=== PATIENT | female | born 1960 | race Caucasian/White ===

== ENCOUNTER 2019-01-20 11:22 | Emergency (ER) | payer BC ==
--- NOTE | 2019-01-20 14:12 | EDM.PDOC ---
ED HPI GENERAL MEDICAL PROBLEM - General Chief Complaint: Cardiovascular Problem Stated Complaint: HEART FLUTTERING Time Seen by Provider: 01/20/19 11:35 Source of Information: Reports: Patient History Limitations: Reports: No Limitations - History of Present Illness INITIAL COMMENTS - FREE TEXT/NARRATIVE: The patient presents with right upper chest pain that radiates to her back and fluttering in he chest. She was just at the [employer] in [place] and she developed this pain on the way home. She has a history of fibromyalgia and she thinks it could be that. She is not that concerned about that but she says it felt like her heart was fluttering in her chest at times. She has no fever, chills, cough, shortness of breath, abdominal pain, nausea or vomiting. She has no history of DVT or PE. She does have some right leg pain but that goes along with her fibromyalgia. She has no swelling. Onset: Gradual Duration: Day(s): Location: Reports: Chest, Back Quality: Reports: Sharp Severity: Moderate Improves with: Reports: Immobilization Worsens with: Reports: Movement Context: Denies: Trauma Associated Symptoms: Reports: Chest Pain. Denies: Cough, Fever/Chills, Headaches, Nausea/Vomiting, Shortness of Breath Right Upper Chest Pain Score (Numeric/FACES): 10 - Related Data Allergies Allergy/AdvReac Type Severity Reaction Status Date / Time No Known Allergies Allergy Verified 01/20/19 11:39 Home Meds: Home Meds Calcium Carbonate [Calcium] 1,500 mg PO DAILY 01/20/19 [History] Cyanocobalamin (Vitamin B12) [Vitamin B12] 2,000 mcg PO DAILY 01/20/19 [History] Ibuprofen 200 mg PO Q6HR 01/20/19 [History] L.acidoph,Paracasei, B.lactis [Probiotic] 1 each PO DAILY 01/20/19 [History] Magnesium 0 mg PO DAILY 01/20/19 [History] Past Medical History Cardiovascular History: Reports: None Respiratory History: Reports: None QUALITY NURSE History: Reports: None Musculoskeletal History: Reports: Other (See Below) Other Musculoskeletal History: Fibromyalgia. Osteopenia. Chronic Neck Pain. Neurological History: Reports: Headaches, Chronic, Migraines Psychiatric History: Reports: None Endocrine/Metabolic History: Reports: None Hematologic History: Reports: B12 Deficiency Immunologic History: Reports: None Oncologic (Cancer) History: Reports: None Dermatologic History: Reports: None - Infectious Disease History Infectious Disease History: Reports: None - Past Surgical History HEENT Surgical History: Reports: Naso-Sinus Surgery GI Surgical History: Reports: Colonoscopy Female Surgical History: Reports: Hysterectomy Social & Family History - Tobacco Use Smoking Status *Q: Never Smoker - Caffeine Use Caffeine Use: Reports: None - Recreational Drug Use Recreational Drug Use: No ED ROS GENERAL - Review of Systems Review Of Systems: See Below Constitutional: Reports: No Symptoms HEENT: Reports: No Symptoms Respiratory: Reports: No Symptoms Cardiovascular: Reports: Chest Pain Endocrine: Reports: No Symptoms GI/Abdominal: Reports: No Symptoms : Reports: No Symptoms Musculoskeletal: Reports: Back Pain (Right upper) Skin: Reports: No Symptoms Neurological: Reports: No Symptoms ED EXAM, GENERAL - Physical Exam Exam: See Below Exam Limited By: No Limitations General Appearance: Alert, No Apparent Distress Ears: Normal External Exam Nose: Normal Inspection Head: Atraumatic, Normocephalic Neck: Normal Inspection, Supple, Non-Tender Respiratory/Chest: No Respiratory Distress, Lungs Clear, Normal Breath Sounds Cardiovascular: Regular Rate, Rhythm, No Edema, No Murmur GI/Abdominal: Soft, Non-Tender, No Organomegaly, No Mass Back Exam: Other (Mild pain upon palpation to the right upper back) Extremities: Normal Inspection EKG INTERPRETATION EKG Date: 01/20/19 Time: 11:33 Rhythm: NSR Rate (Beats/Min): 76 [place]: Normal P-Wave: Present QRS: Normal ST-T: Normal QT: Normal Course - Vital Signs Last Recorded V/S: Last Vital Signs Temp 98.3 F 01/20/19 11:33 Pulse 95 01/20/19 11:33 Resp 16 01/20/19 11:33 BP 123/66 01/20/19 11:33 Pulse Ox 95 01/20/19 11:33 - Orders/Labs/Meds Orders: Active Orders 24 hr Category Date Time Status Cardiac Monitoring [RC] . DIRECTED Care 01/20/19 11:50 Active EKG 12 Lead [EKG Documentation Completion] [RC] ROUTINE Care 01/20/19 11:45 Active Holter Monitor 48 Hours [RC] .PRN Care 01/20/19 14:06 Ordered Chest 2V [CR] Stat Exams 01/20/19 11:51 Taken Labs: Laboratory Tests 01/20/19 01/20/19 01/20/19 Range/Units 12:07 12:07 12:07 WBC 5.45 (3.98-10.04) K/mm3 RBC 4.35 (3.98-5.22) M/mm3 Hgb 13.2 (11.2-15.7) gm/dl Hct 40.1 (34.1-44.9) % MCV 92.2 (79.4-94.8) fl MCH 30.3 (25.6-32.2) pg MCHC 32.9 (32.2-35.5) g/dl RDW Std Deviation 43.1 (36.4-46.3) fL Plt Count 352 (182-369) K/mm3 MPV 9.1 L (9.4-12.3) fl Neut % (Auto) 60.4 (34.0-71.1) % Lymph % (Auto) 21.5 (19.3-51.7) % [place] % (Auto) 9.9 (4.7-12.5) % Eos % (Auto) 7.3 H (0.7-5.8) Baso % (Auto) 0.9 (0.1-1.2) % Neut # (Auto) 3.29 (1.56-6.13) K/mm3 Lymph # (Auto) 1.17 L (1.18-3.74) K/mm3 [place] # (Auto) 0.54 H (0.24-0.36) K/mm3 Eos # (Auto) 0.40 H (0.04-0.36) K/mm3 Baso # (Auto) 0.05 (0.01-0.08) K/mm3 D-Dimer, Quantitative 0.48 (0.19-0.50) mg/L Sodium 145 (136-145) mEq/L Potassium 3.8 (3.5-5.1) mEq/L Chloride 108 H (98-107) mEq/L Carbon Dioxide 31 (21-32) mEq/L Anion Gap 9.8 (5-15) BUN 16 (7-18) mg/dL Creatinine 0.7 (0.55-1.02) mg/dL Est Cr Clr Drug Dosing 70.13 mL/min Estimated GFR (MDRD) > 60 (>60) mL/min BUN/Creatinine Ratio 22.9 H (14-18) Glucose 82 (74-106) mg/dL Calcium 9.3 (8.5-10.1) mg/dL Total Bilirubin 0.2 (0.2-1.0) mg/dL AST 14 L (15-37) U/L ALT 25 (14-59) U/L Alkaline Phosphatase 89 (46-116) U/L Troponin I < 0.017 (0.00-0.056) ng/mL Total Protein 7.0 (6.4-8.2) g/dl Albumin 3.7 (3.4-5.0) g/dl Globulin 3.3 gm/dL Albumin/Globulin Ratio 1.1 (1-2) - Re-Assessments/Exams Free Text/Narrative Re-Assessment/Exam: 01/20/19 14:10 I ordered an EKG, CXR and labs. Her EKG shows a NSR with no acute changes. Her CXR looks good. Her CBC and CMP look good. Her troponin and D-dimer are negative. I feel this is muskuloskeletal. I do want to give her a holter monitor and see if we can catch some fluttering. Departure - Departure Time of Disposition: 14:15 Disposition: Home, Self-Care 01 Condition: Good Clinical Impression: Atypical chest pain, Upper back pain on right side, Fluttering sensation of heart Referrals: Deborah Champion PA-C [Primary Care Provider] - 1 Week Additional Instructions: Wear the holter monitor for 48 hours. Try to keep track when you have an episode of you heart fluttering. Please return if you are worse. Sepsis Event Note - Evaluation Sepsis Screening Result: No Definite Risk - Focused Exam Vital Signs: Vital Signs Temp Pulse Resp BP Pulse Ox 01/20/19 11:33 98.3 F 95 16 123/66 95 Date Exam was Performed: 01/20/19 Time Exam was Performed: 14:06 - My Orders Last 24 Hours: My Active Orders 01/20/19 11:45 EKG 12 Lead [EKG Documentation Completion] [RC] ROUTINE 01/20/19 11:50 Cardiac Monitoring [RC] . DIRECTED 01/20/19 11:51 Chest 2V [CR] Stat 01/20/19 14:06 Holter Monitor 48 Hours [RC] .PRN - Assessment/Plan Last 24 Hours: My Active Orders 01/20/19 11:45 EKG 12 Lead [EKG Documentation Completion] [RC] ROUTINE 01/20/19 11:50 Cardiac Monitoring [RC] . DIRECTED 01/20/19 11:51 Chest 2V [CR] Stat 01/20/19 14:06 Holter Monitor 48 Hours [RC] .PRN
--- NOTE | 2019-01-20 14:50 | CR ---
Chest: Two views of the chest were obtained. Comparison: No prior chest x-ray. Heart size and mediastinum are normal. Lungs are clear. Mild scoliosis is noted within the spine. Previous cervical spine surgery is noted. Impression: 1. Nothing acute is seen on two-view chest x-ray. Diagnostic code #2 This report was dictated in [place] Standard Time
== END 2019-01-20 14:22 | disposition home or self-care (01) ==
LOC: JD.ED 11:22
DX: R07.89 Other chest pain (principal); M54.6 Pain in thoracic spine; I49.8 Other specified cardiac arrhythmias; Z79.899 Other long term (current) drug therapy
CPT/HCPCS: 36415; 71046; 71046-26; 80053; 84484; 85025; 85379; 93005; 93010; 93225; 93226; 99284; 99285-25